=== PATIENT | female | born 1980 | race Caucasian/White ===

== ENCOUNTER 2017-01-07 09:16 | Day surgery (SDC) | payer MEDICARE, MEDICAID ==
[~2017-01-07] VITALS: Ht 157.5 cm; Wt 51.7 kg
[2017-01-07] MEDS ORDERED: DOXE10CA2 PO (10:46)
[2017-01-07] MEDS ORDERED: soma (10:46)
[2017-01-07] MEDS ORDERED: BUPR300T52 PO (10:46)
[2017-01-07] MEDS ORDERED: klonopin (10:46)
[2017-01-07] MEDS ORDERED: CLON0.1T PO (10:46)
[2017-01-07] MEDS ORDERED: ZOLP10TA2 PO (10:46)
[2017-01-07] MEDS ORDERED: LAM15 PO (10:46)
[2017-01-07 11:57] LABS: GLUCOSE CSF 56 mg/dL (41-75)
[2017-01-11 15:07] LABS: MYELIN BASIC PROTEIN CSF 0.7 ng/mL (0.0-1.2)
== END 2017-01-07 15:30 | disposition home or self-care (01) ==
LOC: ANGIO 09:16
PROVIDERS: ATTEND Psychiatry & Neurology Neurology
DX: R90.82 White matter disease, unspecified (principal)
CPT/HCPCS: 62270; 77003; 82040; 82042; 82784; 82945; 83873; 83916; 84157; 87070; 87205; 89050

== ENCOUNTER 2017-01-12 01:08 | Emergency (ER) | payer MEDICARE, MEDICAID ==
[~2017-01-12] VITALS: Ht 157.5 cm; Wt 52.0 kg
[~2017-01-12 01:08] MED LIST: BUPR300T52 PO; CLON0.1T PO; DOXE10CA2 PO; LAM15 PO; ZOLP10TA2 PO; klonopin; soma
[2017-01-12] MEDS ORDERED: KETOROLAC 30MG/ML VIAL IV STA (04:42)
[2017-01-12] MEDS ORDERED: SODIUM CHLORIDE 0.9% 1,000 ML IV ONE (04:42)
[2017-01-12 05:12] LABS: EOSINOPHILS % 2.1 % (0.0-5.0); HEMATOCRIT. 29.4 % (36.0-48.0); HEMOGLOBIN. 10.2 g/dL (12.0-16.0); LYMPHOCYTES % 36.5 % (20.0-50.0); MEAN CORPUSCULAR HEMOGLOBIN 33.2 pg (28.0-32.0); MEAN CORPUSCULAR VOLUME 95.5 fL (81.0-99.0); MEAN PLATELET VOLUME 8.6 fl (7.4-10.4); MONOCYTES % 6.2 % (2.0-8.0); NEUTROPHILS % 54.2 % (40.0-76.0); PLATELET 231 x1000/uL (130-400); RED BLOOD CELL COUNT 3.08 mill/uL (4.2-5.4); RED CELL DISTRIBUTION WIDTH 12.3 % (11.6-14.6)
[2017-01-12 05:26] LABS: CARBON DIOXIDE 26 mEq/L (21-32); CHLORIDE 107 mEq/L (98-107)
[2017-01-12 08:25] VITALS: BP 98/60
[2017-01-12] MEDS ORDERED: ONDANSETRON HCL 4MG TABLET PO ONE (08:30)
== END 2017-01-12 09:11 | disposition home or self-care (01) ==
LOC: ER 01:08
DX: R51 Headache (principal)
CPT/HCPCS: 36415; 80053; 81025; 85025; 96361; 96374; 99284; J1885; J7030; Q0162

== ENCOUNTER 2017-01-12 09:46 | Emergency (ER) | payer MEDICARE, MEDICAID ==
[~2017-01-12] VITALS: Ht 160 cm; Wt 54.0 kg
[2017-01-12 12:14] VITALS: BP 120/79
== END 2017-01-12 12:46 | disposition home or self-care (01) ==
LOC: ER 09:46
DX: R51 Headache (principal)
CPT/HCPCS: 99283